=== PATIENT | female | born 1980 | race Caucasian/White ===

== ENCOUNTER 2021-01-14 15:46 | Emergency (ER) | payer OTHER, SELFPAY ==
--- NOTE | ~2021-01-14 | CT_ITS ---
EXAMINATION: CT ABDOMEN AND PELVIS WITHOUT CONTRAST CLINICAL INFORMATION: Left flank pain? Stone . COMPARISON: No pertinent prior studies are available for comparison. TECHNIQUE: Multidetector volumetric imaging was performed from the superior aspect of the liver through the pubic symphysis without contrast per renal stone protocol. Sagittal and coronal reformatted images were obtained on the technologist workstation. This CT examination was performed using dose optimization techniques as appropriate, variously including the following: *Automated exposure control *Adjustment of mA and/or kV according to patient size (this includes techniques or standardized protocols for targeted exams where dose is matched to indication/reason for exam; i.e. extremities or head) *Use of iterative reconstruction technique DLP: 535 mGy-cm. FINDINGS: LUNG BASES: The visualized lung bases are unremarkable. LIVER, GALLBLADDER, BILIARY TREE: The non-contrast liver is normal in size, shape, and attenuation. No focal hepatic lesion or biliary ductal dilatation is present. The gallbladder is unremarkable with no evidence of radiopaque gallstones, gallbladder wall thickening, or obvious pericholecystic inflammatory changes. PANCREAS: Unremarkable. SPLEEN: Unremarkable. ADRENAL GLANDS: Unremarkable. KIDNEYS AND URETERS: The kidneys are normal in size, shape, and attenuation. No hydronephrosis, hydroureter, or calculi seen. No perinephric stranding. BLADDER: Unremarkable. GASTROINTESTINAL TRACT: Scattered colonic diverticulosis. I do not appreciate any colonic wall thickening or pericolonic inflammatory changes to suggest diverticulitis. Normal-appearing appendix in the right lower quadrant. ABDOMINAL WALL: No significant hernia is appreciated. LYMPHOVASCULAR STRUCTURES: No lymphadenopathy. The aorta is unremarkable.. PELVIC VISCERA: Physiologic changes seen with likely physiologic free fluid in the dependent pelvis. OSSEUS STRUCTURES: Unremarkable. CT/CT abdomen pelvis wo con IMPRESSION: Physiologic changes in chronic appearing changes but no definitive acute process..
[2021-01-14 16:20] VITALS: BP 121/57; PULSE 68; RESP 18; O2SAT 98; BMI 27.2
[2021-01-14 16:56] LABS: Glucose Urine UA NEG (NEG); Leukocyte Esterase Urine 1+ (NEG); Nitrite Urine NEG (NEG); Specific Gravity - Urine >= 1.030 (1.005-1.025); UACC Culture Trigger YES; Urine Blood NEG (NEG); Urine Ketones NEG (NEG); Urine Protein NEG (NEG-TRACE)
[2021-01-14 17:00] LABS: Appearance Urine HAZY; Color Urine YELLOW; UPreg QC Valid YES; Urine Pregnancy NEGATIVE (NEGATIVE)
[2021-01-14 17:19] LABS: Bacteria Urine 1+ /LPF; Mucus Urine 2+ /LPF; RBC Urine 0-2 /HPF (0); Squamous Epithelial Cell Urine 2+ /LPF
[2021-01-14 17:29] LABS: Anion Gap 14 (12-20); Blood Urea Nitrogen 18 mg/dL (9-16); Calcium 9.3 mg/dL (8.4-10.2); Carbon Dioxide 25 mmol/L (22-29); Chloride 106 mmol/L (96-108); Creatinine Clr Calc Pharmacy 97.6; Estimated Glomerular Filt Rate > 60; Glucose Random 84 mg/dL (60-115); Sodium 141 mmol/L (135-145)
--- NOTE | 2021-01-14 20:03 | ED_ITS ---
HPI - Abdominal Pain General Chief Complaint: Back Pain/Injury Stated Complaint: back pain Time Seen by Provider: 01/14/21 19:25 Source: patient Mode of arrival: ambulatory Limitations: no limitations History of Present Illness HPI narrative: Patient with chronic off and on back problems complaining of left flank pain radiating to the front since afternoon today without any significant injury patient denies any urinary complaints no hematuria no nausea no vomiting MD elicited complaint: abdominal pain and flank pain Pertinent past history: none Onset (ago): hour(s) Pain Consistency: constant Location: LLQ and L flank Severity: moderate Quality: sharp Related Data Previous Rx's Medication Instructions Recorded cyclobenzaprine 10 mg PO Q8H #20 tab 01/14/21 nitrofurantoin monohyd/m-cryst 100 mg PO BID #14 cap 01/14/21 [Macrobid] tramadol 50 mg PO Q8H PRN #20 tab 01/14/21 Allergies Allergy/AdvReac Type Severity Reaction Status Date / Time No Known Allergies Allergy Unverified 07/11/20 17:18 [No Known Allergies*] Review of Systems Review of Systems Constitutional : No Weight loss, No Fever, No Chills ENT/Mouth : No sore throat, No Rhinorrhea Eyes: No Eye Pain, No Swelling Cardiovascular : No Chest Pain, no palpitations Respiratory : No Cough, No Sputum, no shortness of breath Gastrointestinal : no Nausea, No Vomiting, No Diarrhea, No abdominal Pain, no black stools Genitourinary : No Dysuria, No Urinary Frequency Musculoskeletal : No joint pain, No Myalgias, No Joint Swelling Skin : No Skin Lesions, No rash Neuro : No Weakness, No Numbness, No Dizziness, No Headache Psych : No Anxiety/Panic, No Depression Heme/Lymph: No Bruising, No Lymphadenopathy Endocrine : No Polyuria, No Polydipsia All other systems reviewed and are negative Physical Exam Vital Signs: Vital Signs: Last Vital Signs Temp 98.2 F 01/14/21 20:18 Pulse 74 01/14/21 20:18 Resp 18 01/14/21 20:18 BP 125/66 01/14/21 20:18 Pulse Ox 100 01/14/21 20:18 Body Mass Index 27.2 Appearance: Alert. Oriented X3. In moderate distress. Eyes: Pupils equal, round and reactive to light. ENT: Pharynx normal. Neck: Normal inspection. Neck supple. CVS: Normal heart rate and rhythm. Pulses normal. Respiratory: No respiratory distress. Breath sounds normal. Abdomen: Soft moderate tenderness left mid abdomen. Bowel sounds are present, no mass palpable, mild left CVA tenderness Skin: Skin warm and dry. Normal skin color. Normal skin turgor. Extremities: No lower extremity edema. Neuro: Oriented X 3. No motor deficit. No sensory deficit. MDM - Abdominal Pain MDM Narrative Medical decision making narrative: Patient with left flank and left sided abdominal pain CT scan is negative for any acute pathology patient does have a back problems off and on likely the cause of the pain her urine showed slight leukoesterase without significant bacteria or wbc's with treat her with Macrobid discharged home on pain medication muscle relaxers Medical Records Attestation: I reviewed the patient's medical records. Lab Data Attestation: I reviewed the patient's lab results. Result diagrams: 01/14/21 20:12 01/14/21 16:47 Labs: Lab Results 01/14/21 01/14/21 01/14/21 Range/Units 16:47 16:48 16:48 WBC (4.8-10.8) X10*3/uL RBC (4.20-5.50) X10*6/uL Hgb (12.0-16.0) g/dl Hct (37-47) % MCV (80-98) fL MCH (27.0-33.0) pg MCHC (31.0-35.0) g/dl RDW (11.0-16.0) % Plt Count (160-400) X10*3/uL MPV (9.4-12.3) fL Immature Gran % (Auto) (0.0-0.4) % Neut % (Auto) (45-73) % Lymph % (Auto) (20-40) % [place] % (Auto) (2-11) % Eos % (Auto) (0-4) % Baso % (Auto) (0-2) % Lymph # (Auto) (1.2-4.9) X10*3/uL [place] # (Auto) (0.1-1.2) X10*3/uL Eos # (Auto) (0.0-0.4) X10*3/uL Baso # (Auto) (0.0-0.2) X10*3/uL Abs Immat Gran (auto) (0.00-0.03) X10*3/uL Absolute Neuts (auto) (2.0-8.3) X10*3/uL Absolute Nucleated RBC (0.0-0.012) X10*3/uL Nucleated RBC % (auto) (0.0-0.2) /100WBC Sodium 141 (135-145) mmol/L Potassium 4.0 (3.3-5.1) mmol/L Chloride 106 (96-108) mmol/L Carbon Dioxide 25 (22-29) mmol/L Anion Gap 14 (12-20) BUN 18 H (9-16) mg/dL Creatinine 0.73 (0.5-1.4) mg/dL Estim Creat Clear Calc 97.6 Estimated GFR > 60 Random Glucose 84 (60-115) mg/dL Calcium 9.3 (8.4-10.2) mg/dL Urine Color YELLOW Urine Appearance HAZY Urine pH 6.0 (5.0-8.0) Ur Specific Harman >= 1.030 H (1.005-1.025) Urine Protein NEG (NEG-TRACE) MG/DL Urine Glucose (UA) NEG (NEG) MG/DL Urine Ketones NEG (NEG) MG/DL Urine Blood NEG (NEG) Urine Nitrite NEG (NEG) Ur Leukocyte Esterase 1+ H (NEG) Urine RBC 0-2 (0) /HPF Urine WBC 1-4 (0-4) /HPF Ur Squamous Epith Cells 2+ /LPF Urine Bacteria 1+ /LPF Urine Mucus 2+ /LPF Urine Test NEGATIVE (NEGATIVE) 01/14/21 Range/Units 20:12 WBC 6.6 (4.8-10.8) X10*3/uL RBC 4.21 (4.20-5.50) X10*6/uL Hgb 13.4 (12.0-16.0) g/dl Hct 39.0 (37-47) % MCV 92.6 (80-98) fL MCH 31.8 (27.0-33.0) pg MCHC 34.4 (31.0-35.0) g/dl RDW 12.3 (11.0-16.0) % Plt Count 224 (160-400) X10*3/uL MPV 9.8 (9.4-12.3) fL Immature Gran % (Auto) 0.2 (0.0-0.4) % Neut % (Auto) 53.6 (45-73) % Lymph % (Auto) 35.5 (20-40) % [place] % (Auto) 8.3 (2-11) % Eos % (Auto) 2.1 (0-4) % Baso % (Auto) 0.3 (0-2) % Lymph # (Auto) 2.3 (1.2-4.9) X10*3/uL [place] # (Auto) 0.6 (0.1-1.2) X10*3/uL Eos # (Auto) 0.1 (0.0-0.4) X10*3/uL Baso # (Auto) 0.0 (0.0-0.2) X10*3/uL Abs Immat Gran (auto) 0.01 (0.00-0.03) X10*3/uL Absolute Neuts (auto) 3.5 (2.0-8.3) X10*3/uL Absolute Nucleated RBC 0.000 (0.0-0.012) X10*3/uL Nucleated RBC % (auto) 0.0 (0.0-0.2) /100WBC Sodium (135-145) mmol/L Potassium (3.3-5.1) mmol/L Chloride (96-108) mmol/L Carbon Dioxide (22-29) mmol/L Anion Gap (12-20) BUN (9-16) mg/dL Creatinine (0.5-1.4) mg/dL Estim Creat Clear Calc Estimated GFR Random Glucose (60-115) mg/dL Calcium (8.4-10.2) mg/dL Urine Color Urine Appearance Urine pH (5.0-8.0) Ur Specific Harman (1.005-1.025) Urine Protein (NEG-TRACE) MG/DL Urine Glucose (UA) (NEG) MG/DL Urine Ketones (NEG) MG/DL Urine Blood (NEG) Urine Nitrite (NEG) Ur Leukocyte Esterase (NEG) Urine RBC (0) /HPF Urine WBC (0-4) /HPF Ur Squamous Epith Cells /LPF Urine Bacteria /LPF Urine Mucus /LPF Urine Test (NEGATIVE) Discharge Plan Discharge Clinical Impression: Strain of lumbar region, UTI (urinary tract infection) Patient Disposition: Home, Self-Care Instructions: Urinary Tract Infection in Women (ED), Acute Low Back Pain (ED) Additional Instructions: Drink plenty of fluid take antibiotics and pain medication as prescribed and follow with PCP Prescriptions: New nitrofurantoin monohyd/m-cryst [Macrobid] 100 mg capsule 100 mg PO BID Qty: 14 RF: 0 tramadol 50 mg tablet 50 mg PO Q8H PRN (Reason: pain) Qty: 20 RF: 0 cyclobenzaprine 10 mg tablet 10 mg PO Q8H Qty: 20 RF: 0 Stand Alone Forms: Work/School Release Interventions: ED Discharge Assessment Last Done: 01/14/21 22:21 Discharge Date/Time: 01/14/21 22:22 [facility] Social History Social History Alcohol intake: current Alcohol intake frequency: a few times a week Smoking Status: Former smoker Smoked in Last 30 Days: No Use of substances other than those prescribed or required for medical reasons: No Advance Directives: No Advance Directives Information Provided: No
[2021-01-14] MEDS: Ketorolac Tromethamine 30 MG/ML VIAL IVPUSH (20:13)
[2021-01-14] MEDS: ondansetron HCL 4 MG/2 ML VIAL IVPUSH (20:14)
[2021-01-14] MEDS: Morphine Sulfate 4 MG/ML CARTRIDGE IVPUSH (20:14)
[2021-01-14] MEDS: 0.9 % Sodium Chloride 1,000 ML 999 ML IVCONT (20:16)
[2021-01-14 20:18] VITALS: BP 125/66; PULSE 74; RESP 18; TEMP 36.8; O2SAT 100
[2021-01-14 20:24] LABS: MANUAL DIFF FLAG NO
[2021-01-14 20:31] LABS: Basophils Percent Auto 0.3 % (0-2); Eosinophils Absolute Auto 0.1 X10*3/uL (0.0-0.4); Eosinophils Percent Auto 2.1 % (0-4); Hemoglobin 13.4 g/dl (12.0-16.0); Imm Gran Abs Auto 0.01 X10*3/uL (0.00-0.03); Imm Gran Pct Auto 0.2 % (0.0-0.4); Lymphocytes Absolute Auto 2.3 X10*3/uL (1.2-4.9); Lymphocytes Percent Auto 35.5 % (20-40); Mean Corpuscular HGB Conc 34.4 g/dl (31.0-35.0); Mean Corpuscular Hemoglobin 31.8 pg (27.0-33.0); Mean Corpuscular Volume 92.6 fL (80-98); Mean Platelet Volume 9.8 fL (9.4-12.3); Monocytes Absolute Auto 0.6 X10*3/uL (0.1-1.2); Monocytes Percent Auto 8.3 % (2-11); Neutrophils Absolute Auto 3.5 X10*3/uL (2.0-8.3); Neutrophils Percent Auto 53.6 % (45-73); Platelet Count 224 X10*3/uL (160-400); Red Blood Count 4.21 X10*6/uL (4.20-5.50); Red Cell Distribution Width 12.3 % (11.0-16.0); White Blood Count 6.6 X10*3/uL (4.8-10.8)
[2021-01-14] MEDS: traMADoL HCL 50 MG TABLET PO (22:03)
[2021-01-14] MEDS: Nitrofurantoin Monohyd/M-Cryst 100 MG CAPSULE PO (22:03)
== END 2021-01-14 22:22 | disposition home or self-care (01) ==
PROVIDERS: Emergency Provider Internal Medicine; PCP Internal Medicine
DX: N39.0 Urinary tract infection, site not specified (principal); S39.012A Strain of muscle, fascia and tendon of lower back, initial encounter; X58.XXXA Exposure to other specified factors, initial encounter; Y93.9 Activity, unspecified; Y92.9 Unspecified place or not applicable; Y99.9 Unspecified external cause status
CPT/HCPCS: 36415; 74176; 80048; 81001; 81003; 81025; 85025; 87086; 96361; 96374; 96375; 99284; J1885; J2270; J2405

== ENCOUNTER 2021-07-31 07:27 | Outpatient (REF) | payer OTHER, SELFPAY ==
--- NOTE | ~2021-07-31 | MM_ITS ---
EXAMINATION: MM SCREENING DIGITAL BREAST TOMOSYNTHESIS, BILATERAL CLINICAL INFORMATION: Screening. Asymptomatic. The lifetime risk of breast cancer based on the Tyrer-Cuzick Model is 9%. COMPARISON: Mammography: 06/17/2020, 03/10/2019, 02/25/2018, bilateral targeted breast ultrasound 02/25/2018 TECHNIQUE: Digital breast tomosynthesis is performed in both the craniocaudal and mediolateral oblique views along with computer-aided detection (CAD). Synthesized 2D images are generated from the tomosynthesis. Additional exaggerated right CC view is provided. FINDINGS: The breasts are heterogeneously dense, which may obscure small masses (ACR BI-RADS breast composition Category c). There is fibrocystic parenchymal pattern with multiple bilateral waxing and waning round and oval smooth masses with partly obscured margins. There is no significant mass or architectural abnormality. No developing density. No abnormal calcifications. The axilla and skin contours are unremarkable. MM/MM tomosynthesis screening BI IMPRESSION: Fibrocystic parenchymal pattern. No significant changes from prior exams. ASSESSMENT: BI-RADS 2: Benign RECOMMENDATION: Routine annual mammography screening. This patient's information was entered into a reminder system with a target due date for their next mammogram.
== END 2021-07-31 07:28 | disposition home or self-care (01) ==
LOC: HO.MAMMO 07:27
PROVIDERS: PCP Internal Medicine; Visit Provider Internal Medicine
DX: Z12.31 Encounter for screening mammogram for malignant neoplasm of breast (principal)
CPT/HCPCS: 77063; 77067

== ENCOUNTER 2022-08-05 07:18 | Outpatient (REF) | payer OTHER, SELFPAY ==
--- NOTE | ~2022-08-05 | MM_ITS ---
EXAMINATION: MM SCREENING DIGITAL BREAST TOMOSYNTHESIS, BILATERAL CLINICAL INFORMATION: Screening. Asymptomatic. The lifetime risk of breast cancer based on the Tyrer-Cuzick Model is 9%. COMPARISON: Mammography: 07/31/2021, 06/17/2020, 03/10/2019, 02/25/2018; bilateral breast ultrasound 02/25/2018. TECHNIQUE: Digital breast tomosynthesis is performed in both the craniocaudal and mediolateral oblique views along with computer-aided detection (CAD). Synthesized 2D images are generated from the tomosynthesis. FINDINGS: The breasts are heterogeneously dense, which may obscure small masses (ACR BI-RADS breast composition Category c). Fibrocystic parenchymal pattern is present with multiple bilateral waxing and waning round and oval smooth masses with partly obscured margins. No architectural abnormality. No abnormal calcifications. The skin contours are smooth. The axilla are unremarkable. MM/MM tomosynthesis screening BI IMPRESSION: -Fibrocystic parenchymal pattern. -No significant changes from prior studies. ASSESSMENT: BI-RADS 2: Benign RECOMMENDATION: Routine annual mammography screening. This patient's information was entered into a reminder system with a target due date for their next mammogram.
== END 2022-08-05 07:19 | disposition home or self-care (01) ==
LOC: HO.MAMMO 07:18
PROVIDERS: Visit Provider Internal Medicine
DX: Z12.31 Encounter for screening mammogram for malignant neoplasm of breast (principal)
CPT/HCPCS: 77063; 77067

== ENCOUNTER 2023-01-27 08:05 | Outpatient (REF) | payer OTHER, SELFPAY ==
--- NOTE | ~2023-01-27 | XR_ITS ---
EXAMINATION: XR KNEE, RIGHT CLINICAL INFORMATION: Pain COMPARISON: None available. TECHNIQUE: Four views of the right knee. FINDINGS: Bones and soft tissues are normal. No fracture or joint effusion. Alignment is anatomic. Joint spaces are well maintained. No abnormal soft tissue calcification. XR/XR knee RT 4V IMPRESSION: Normal right knee.
[2023-01-27 08:21] LABS: MANUAL DIFF FLAG NO
[2023-01-27 08:42] LABS: Basophils Percent Auto 0.7 % (0-2); Eosinophils Absolute Auto 0.1 X10*3/uL (0.0-0.4); Eosinophils Percent Auto 3.1 % (0-4); Hematocrit 40.6 % (37.0-47.0); Hemoglobin 13.7 g/dl (12.0-16.0); Imm Gran Abs Auto 0.01 X10*3/uL (0.00-0.03); Imm Gran Pct Auto 0.2 % (0.0-0.4); Lymphocytes Absolute Auto 1.5 X10*3/uL (1.2-4.9); Lymphocytes Percent Auto 33.6 % (20-40); Mean Corpuscular HGB Conc 33.7 g/dl (31.0-35.0); Mean Corpuscular Hemoglobin 31.1 pg (27.0-33.0); Mean Corpuscular Volume 92.3 fL (80.0-98.0); Mean Platelet Volume 9.5 fL (9.4-12.3); Monocytes Absolute Auto 0.3 X10*3/uL (0.1-1.2); Monocytes Percent Auto 6.7 % (2-11); Neutrophils Absolute Auto 2.5 x10*3/uL (2.0-8.3); Neutrophils Percent Auto 55.7 % (45-73); Platelet Count 235 X10*3/uL (160-400); Red Cell Distribution Width 12.1 % (11.0-16.0); White Blood Count 4.5 X10*3/uL (4.8-10.8)
[2023-01-27 08:58] LABS: Anion Gap 12 (12-20); Blood Urea Nitrogen 11 mg/dL (9-16); Carbon Dioxide 26 mmol/L (22-29); Chloride 108 mmol/L (96-108); Cholesterol 142 mg/dL; Estimated Glomerular Filt Rate > 60; Glucose Random 84 mg/dL (60-115); HDL Cholesterol 58 mg/dL; LDL Cholesterol Calculated 73 mg/dl; Potassium 4.2 mmol/L (3.3-5.1); Sodium 142 mmol/L (135-145); Triglycerides 58 mg/dL
== END 2023-01-27 08:06 | disposition home or self-care (01) ==
LOC: HO.XRAY 08:05
PROVIDERS: PCP Internal Medicine; Visit Provider Internal Medicine
DX: Z00.00 Encounter for general adult medical examination without abnormal findings (principal); M25.561 Pain in right knee
CPT/HCPCS: 36415; 73564; 80048; 80061; 85025

== ENCOUNTER 2023-08-11 07:30 | Outpatient (REF) | payer OTHER, SELFPAY ==
--- NOTE | ~2023-08-11 | MM_ITS ---
EXAMINATION: MM SCREENING DIGITAL BREAST TOMOSYNTHESIS, BILATERAL CLINICAL INFORMATION: Screening. Asymptomatic. COMPARISON: Mammography: This study is compared with prior exams dating back to 2019. TECHNIQUE: Digital breast tomosynthesis is performed in both the craniocaudal and mediolateral oblique views along with computer-aided detection (CAD). Synthesized 2D images are generated from the tomosynthesis. FINDINGS: The breasts are extremely dense, which lowers the sensitivity of mammography (ACR BI-RADS breast composition Category d). There are no significant masses, abnormal calcifications, or other abnormalities. 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 Numerous benign cysts were documented in an ultrasound from 2018. MM/MM tomosynthesis screening BI IMPRESSION: No mammographic evidence of malignancy. ASSESSMENT: BI-RADS BI-RADS 2 - Benign Findings RECOMMENDATION: Routine annual mammography screening. 1 year F/U This examination should not preclude the clinical evaluation of a suspicious palpable abnormality. This patient's information was entered into a reminder system with a target due date for their next mammogram.
== END 2023-08-11 07:31 | disposition home or self-care (01) ==
LOC: HO.MAMMO 07:30
PROVIDERS: PCP Internal Medicine; Visit Provider Internal Medicine
DX: Z12.31 Encounter for screening mammogram for malignant neoplasm of breast (principal)
CPT/HCPCS: 77063; 77067

== ENCOUNTER → 2023-08-11 07:30 | Outpatient (BNV) | payer OTHER, SELFPAY | PROVIDERS: PCP Internal Medicine; Visit Provider Radiology Diagnostic Radiology | DX: Z12.31 Encounter for screening mammogram for malignant neoplasm of breast (principal) | CPT/HCPCS: 77063; 77067 ==

== ENCOUNTER 2023-10-06 08:10 | Outpatient (AMB) | payer OTHER, SELFPAY ==
[2023-10-06 09:04] VITALS: BP 118/70; PULSE 79; O2SAT 98; BMI 28.1
--- NOTE | 2023-10-06 09:04 | AM.OFFWIN_ITS ---
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 cyclobenzaprine 10 mg PO Q8H nitrofurantoin monohyd/m-cryst 100 mg (Macrobid) 100 mg PO BID tramadol 50 mg PO Q8H PRN Do you need a note to return to daycare/school/sports/work: Yes HPI HPI Comments History of Present Illness Details wednesday upon standing from seated position started w pain in transverse low back reports this has happened in the past, dating back to 2006, no obvious injury such as accident PCP advised chiro in the past, has done this with short lived relief; feels like a screwdriver across transverse low back, intermittent denies new injury treated in past w/ injections currently tx w/ heat alt with ice, stretching and nsaid w/o much relief sitting relieves pain, movement causes the pain PFSH Social History Alcohol intake: current Alcohol intake frequency: a few times a week Review of Systems Const All systems reviewed & are unremarkable except as noted in HPI and below Physical Exam Vital Signs: Last Vital Signs Pulse 79 10/06/23 09:04 BP 118/70 10/06/23 09:04 Pulse Ox 98 10/06/23 09:04 Oxygen Delivery Method Room Air 10/06/23 09:04 BMI result Body Mass Index 28.1 Const Orientation/consciousness: patient oriented x3 General: Yes no CVA tenderness Back/Spine/Pelvis Other: + lumbar lordosis, paraspinal muscle tenderness bilat lower back.SLR negative bilat. leg length = Back: no CVA tenderness Cervical Spine: normal cervical lordosis and cervical ROM normal Neuro General: patient oriented x3, gait normal, tone normal, moves all extremities, no focal motor deficits and deep tendon reflexes 2+ bilaterally Assessment & Plan Assessment & Plan (1) Lordosis of lumbar region: Code(s): M40.56 - Lordosis, unspecified, lumbar region Plan: meds as above PT edu provided about cause for pain (2) Lumbar paraspinal muscle spasm: Code(s): M62.830 - Muscle spasm of back Plan: see above Orders: Orders PT Evaluation and Treatment Today M40.56 - Lordosis, unspecified, lumbar region, M62.830 - Muscle spasm of back Medications: New meloxicam 7.5 mg PO DAILY PRN 14 tabs 0RF pain 14 days tizanidine (Zanaflex) 4 mg PO BEDTIME PRN 7 tabs 0RF muscle spasticity 7 days Coding Level of Care Code Est Pt Level 4 (55920) Diagnoses Lordosis of lumbar region M40.56 Lumbar paraspinal muscle spasm M62.830
== END 2023-10-06 10:16 | disposition home or self-care (01) ==
PROVIDERS: PCP Internal Medicine; Visit Provider Nurse Practitioner Family
DX: M40.56 Lordosis, unspecified, lumbar region (principal); M62.830 Muscle spasm of back
CPT/HCPCS: 99214

== ENCOUNTER 2023-10-15 12:22 | Outpatient (REF) | payer OTHER, SELFPAY ==
[2023-10-15 13:48] LABS: Appearance Urine Cloudy; Color Urine Yellow; Glucose Urine UA Negative (Negative); Leukocyte Esterase Urine Moderate (2+) (Negative); Nitrite Urine Negative (Negative); PH 5.5 (5.0-9.0); Specific Gravity - Urine 1.025 (1.005-1.025); UMIC TRIGGER UA YES; Urine Blood Trace (Negative); Urine Ketones Negative (Negative); Urine Protein Negative (Neg-Trace)
[2023-10-15 13:55] LABS: Bacteria Urine 2+ (None Seen); Hyaline Casts Urine 0-2 /LPF (0-2); WBC Urine 21-50 /HPF (0-5)
== END 2023-10-15 12:23 | disposition home or self-care (01) ==
LOC: HO.XRAY 12:22
PROVIDERS: PCP Internal Medicine; Visit Provider Internal Medicine
DX: M54.50 Low back pain, unspecified (principal); R82.90 Unspecified abnormal findings in urine
CPT/HCPCS: 72100; 81001; 81003; 87086

== ENCOUNTER 2023-12-31 16:43 | Outpatient (REF) | payer OTHER, SELFPAY ==
--- NOTE | ~2023-12-31 | XR_ITS ---
EXAMINATION: CERVICAL SPINE 3 VIEWS CLINICAL INFORMATION: Neck pain. COMPARISON: None. TECHNIQUE: Frontal, lateral and odontoid views are obtained. FINDINGS: Vertebral body heights and alignment are normal. The disc spaces are well-maintained. No acute fracture or spondylolisthesis is seen. The dens and C7-T1 interface are normal. The posterior elements are intact. There is no prevertebral soft tissue swelling. XR/XR cervical spine 3V IMPRESSION: Negative examination.
== END 2023-12-31 16:44 | disposition home or self-care (01) ==
LOC: HO.XRAY 16:43
PROVIDERS: PCP Internal Medicine; Visit Provider Internal Medicine
DX: M54.2 Cervicalgia (principal)
CPT/HCPCS: 72040

== ENCOUNTER 2024-04-19 08:52 | Outpatient (REF) | payer OTHER, SELFPAY ==
[2024-04-19 11:31] LABS: Appearance Urine Hazy; Color Urine Orange; PH 5.5 (5.0-9.0); Specific Gravity - Urine >= 1.030 (1.005-1.025); UMIC TRIGGER UACC YES
[2024-04-19 11:44] LABS: Bacteria Urine 4+ (None Seen); Hyaline Casts Urine 0-2 /LPF (0-2); UACC Culture Trigger YES; WBC Urine 21-50 /HPF (0-5)
== END 2024-04-19 08:53 | disposition home or self-care (01) ==
LOC: HO.HMGCLDS 08:52
PROVIDERS: PCP Internal Medicine; Visit Provider Internal Medicine
DX: R30.0 Dysuria (principal)
CPT/HCPCS: 81001; 87086

== ENCOUNTER 2024-04-19 14:38 | Outpatient (REF) | payer OTHER, SELFPAY ==
--- NOTE | ~2024-04-19 | US_ITS ---
EXAMINATION: US RETROPERITONEAL COMPLETE (RENAL) CLINICAL INFORMATION: Dysuria and left flank pain. COMPARISON: 01/19/2021 TECHNIQUE: Real-time imaging of the kidneys and bladder. FINDINGS: RIGHT KIDNEY: 10.3 x 5.2 x 4.6 cm (SAG x AP x TRV). The kidney is normal in size, contour, and echogenicity. Renal cortical thickness is normal. No renal calculi seen but there is echogenic lower pole 0.7 x 0.9 x 0.8 cm lesion consistent with the appearance of angiomyolipoma . No evidence of hydronephrosis. LEFT KIDNEY: 11.2 x 5.4 x 5.0 cm (SAG x AP x TRV). The kidney is normal in size, contour, and echogenicity. Renal cortical thickness is normal. No calculi or focal parenchymal lesions. There is simple 0.7 x 0.7 x 0.7 cm cyst in interpolar collecting system. No hydronephrosis. BLADDER: Well distended and normal. Bilateral ureteral jets are demonstrated. Prevoid bladder volume is 391 mL. Postvoid bladder volume is 30 mL. Incidental findings: There is fluid in the endometrial cavity US/US retroperitoneal comp IMPRESSION: 1. Angiomyolipoma in the right 3. Small amount of fluid in endometrial, 3. Simple cyst left kidney.
== END 2024-04-19 14:39 | disposition home or self-care (01) ==
LOC: HO.US 14:38
PROVIDERS: PCP Internal Medicine; Visit Provider Internal Medicine
DX: R30.0 Dysuria (principal); R10.9 Unspecified abdominal pain
CPT/HCPCS: 76770

== ENCOUNTER 2024-04-24 10:51 | Outpatient (AMB) | payer SELFPAY ==
--- NOTE | 2024-04-24 11:06 | MHC.OFFVIS ---
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 Pineda. She presents to the office today as a new patient for recurrent urinary tract infections. In discussion with the patient today she reports having followed up with her PCP multiple times for UTI like symptoms and being treated for urinary tract infection. She reports currently being on antibiotic therapy for a urinary tract infection. She reports originally being prescribed Macrobid however after 2 days had not been feeling any better and felt symptoms were persistent at which time her Macrobid was switched to ciprofloxacin. She reports she is currently on antibiotic therapy ciprofloxacin 500 mg b.i.d. that she started on Wednesday with her PCP. In review of patient's chart it appears a retroperitoneal ultrasound was ordered and completed. These results were reviewed with the patient today. Bilateral kidneys with no lesions or calculi noted. Right-sided 0.9cm lesion consistent with an appearance of angiolipoma. Left kidney with simple 0.7 interpolar cyst. The bladder is well distended and normal. Bilateral jets are demonstrated. Pre void bladder volume is approximately 390 mL. Postvoid bladder volume is approximately 30 mL. She reports typically her UTI like symptoms are flank pain. She currently denies urinary urgency, urinary frequency, incontinence, nocturia, hematuria, dysuria, foul smelling urine, changes to urinary stream, fever, and or chills. She is happy with her current voiding parameters. She denies any issues with her bowels. She reports to be premenopausal as she has not had her menses since October of this year. In review of patient's chart it appears urine cultures 01/12, 10/16, and 04/17 noted mixed bacteria. Discussed at length potential causes of urinary tract infections/recurrent urinary tract infections. She does endorse to not drinking much fluid intake such as water daily. She does report noting bilateral flank pain. In office urinalysis results reviewed with the patient today 2+ leukocytes and positive nitrates noted. PVR 0 mL. She otherwise offers no other issues or concerns at this time. [facility] Social History Alcohol intake: current Alcohol intake frequency: a few times a week Review of Systems Const All systems reviewed & are unremarkable except as noted in HPI and below Physical Exam Const General: cooperative, healthy appearing, comfortable, no acute distress, well developed, alert and awake Orientation/consciousness: patient oriented x3 Limitations: no limitations HEENT Head: Yes normal to inspection, Yes normocephalic and Yes atraumatic Ears: hearing grossly normal bilaterally Eyes General: appearance normal, both eyes and all related structures Neck Neck: Yes normal visual inspection and Yes trachea midline Chest Chest palpation & inspection: normal inspection of the chest Resp Effort & Inspection: normal respiratory effort and able to speak in complete sentences Cardio Rate: regular rate GI Inspection: Yes normal to inspection General: Yes no CVA tenderness Back/Spine/Pelvis Back: no CVA tenderness Skin General skin exam: no rashes or lesions noted Neuro General: patient oriented x3 Extrem General: Yes normal to inspection Psych Appearance: grossly normal and well kempt Mental Status: mental status grossly normal Speech and movement: Normal speech and movement present and Clear speech present Affect: normal affect Attitude: cooperative Thought process: Normal thought process present Thought content: Normal thought content present Insight: Fair insight present (Psych) Judgement: Fair judgement present (Psych) Results AMB Urinalysis, Automated UA Leukoctes 125 Reginald/uL Last Edit by Brianna Banuelos on 04/24/24 11:30 UA Nitrite Positive Last Edit by Brianna Banuelos on 04/24/24 11:30 UA Urobilinogen 0.2 mg/dL Last Edit by Brianna Banuelos on 04/24/24 11:30 UA Protein 0 mg/dL Last Edit by Brianna Banuelos on 04/24/24 11:30 UA pH 6.0 Last Edit by Brianna Banuelos on 04/24/24 11:30 UA Blood 10 Clarke/uL Last Edit by Brianna Banuelos on 04/24/24 11:30 UA Specific Lovell 1.020 Last Edit by Brianna Banuelos on 04/24/24 11:30 UA Ketone Negative Last Edit by Brianna Banuelos on 04/24/24 11:30 UA Bilirubin 0 mg/dL Last Edit by Brianna Banuelos on 04/24/24 11:30 UA Glucose 0 mg/dL Last Edit by Brianna Banuelos on 04/24/24 11:30 Results Reviewed Results Reviewed: Laboratory Last Values Urine pH (Auto) 6.0 04/24/24 11:28 Specific Lovell (Auto) 1.020 04/24/24 11:28 Urine Protein (Auto) 0 mg/dL 04/24/24 11:28 Glucose (UA)(Auto) 0 mg/dL 04/24/24 11:28 Urine Ketones (Auto) Negative 04/24/24 11:28 Urine Blood (Auto) 10 Clarke/uL 04/24/24 11:28 Urine Nitrite (Auto) Positive 04/24/24 11:28 Urine Bilirubin (Auto) 0 mg/dL 04/24/24 11:28 Urine Urobilinogen (Auto) 0.2 mg/dL 04/24/24 11:28 Leukocyte Esterase (Auto) 125 Reginald/uL 04/24/24 11:28 Date of Service: 04/19/24 EXAMINATION: US RETROPERITONEAL COMPLETE (RENAL) FINDINGS: RIGHT KIDNEY: 10.3 x 5.2 x 4.6 cm (SAG x AP x TRV). The kidney is normal in size, contour, and echogenicity. Renal cortical thickness is normal. No renal calculi seen but there is echogenic lower pole 0.7 x 0.9 x 0.8 cm lesion consistent with the appearance of angiomyolipoma . No evidence of hydronephrosis. LEFT KIDNEY: 11.2 x 5.4 x 5.0 cm (SAG x AP x TRV). The kidney is normal in size, contour, and echogenicity. Renal cortical thickness is normal. No calculi or focal parenchymal lesions. There is simple 0.7 x 0.7 x 0.7 cm cyst in interpolar collecting system. No hydronephrosis. BLADDER: Well distended and normal. Bilateral ureteral jets are demonstrated. Prevoid bladder volume is 391 mL. Postvoid bladder volume is 30 mL. Incidental findings: There is fluid in the endometrial cavity IMPRESSION: 1. Angiomyolipoma in the right 3. Small amount of fluid in endometrial, 3. Simple cyst left kidney. Assessment & Plan Assessment & Plan (1) Recurrent UTI: Code(s): N39.0 - Urinary tract infection, site not specified Category: Medical (2) Complicated urinary tract infection: Code(s): N39.0 - Urinary tract infection, site not specified Category: Medical (3) Flank pain: Code(s): R10.9 - Unspecified abdominal pain Category: Medical Plan In office urinalysis results reviewed with the patient today; as noted above. PVR 0 mLs. Recent retroperitoneal ultrasound results reviewed with the patient today; as noted above. Discussed at length potential causes of recurrent urinary tract infections. Discussed UTI prevention with D mannose supplement, vitamin-C, increasing fluid intake, behavioral therapy with timed voiding, perineal hygiene and postcoital voiding, and management of constipation with stool softeners and increased fiber intake. Discussed and stressed the importance of completing antibiotic therapy as prescribed. Follow-up with nursing after completion of antibiotic therapy for urinalysis for further assessment evaluation. Discussed possible near future microgen. Discussed possible near future in office cystoscopy if symptoms persist. Follow-up with provider in 3 months with PVR. Orders: Orders AMB Urinalysis Automated Today Z13.9 - Encounter for screening, unspecified Patient Instructions: The patient had an opportunity to ask questions regarding the treatment plan. All questions were answered. Physical exam, labs, and imaging were discussed and reviewed in detail. As well as risks, benefits, and discussion of treatment choices. No major barriers to understanding were identified. The patient expressed understanding and agreement with the above treatment plan. The patient was made aware they should contact our office by phone for worsening of their current condition, the appearance of new symptoms, or with any questions or concerns. Compliance is encouraged with any medications and follow up testing that is ordered. It is a privilege to be allowed the opportunity to participate in? your urological care.? Again, if you have any questions or concerns If you have any questions or concerns please do not hesitate to contact me. The office is [phone]. This note is constructed using voice recognition software. While every effort has been made to ensure accuracy patient access representative errors may have been included. Yours sincerely, KARLOS Vines Coding Level of Care Code New Pt Level 3 (09084) Diagnoses Recurrent UTI N39.0 Complicated urinary tract infection N39.0 Flank pain R10.9
== END 2024-04-24 11:34 | disposition home or self-care (01) ==
PROVIDERS: PCP Internal Medicine; Visit Provider Nurse Practitioner Family
DX: N39.0 Urinary tract infection, site not specified (principal); R10.9 Unspecified abdominal pain; Z13.9 Encounter for screening, unspecified
CPT/HCPCS: 99203

== ENCOUNTER → 2024-04-24 10:51 | Outpatient (BNVA) | payer SELFPAY | PROVIDERS: PCP Internal Medicine; Visit Provider Nurse Practitioner Family | DX: N39.0 Urinary tract infection, site not specified (principal); R10.9 Unspecified abdominal pain | CPT/HCPCS: 81003 ==

== ENCOUNTER 2024-05-03 08:26 | Outpatient (AMB) | payer OTHER, SELFPAY ==
--- NOTE | 2024-05-03 08:51 | AM.OFFVISNUR ---
Intake Visit Reasons: 1w/UA Allergies No Known Allergies [No Known Allergies*] Allergy (Verified 04/24/24 11:45) Nursing Note Patient presents to office for urinalysis due to being on antibiotics during last office visit with Livia EVERETT. Patient given castile soap wipes and urine cup. Patient reporting not feeling any better since finishing antibiotics. Urinalysis shows microscopic hematuria and dehydration. Reviewed all information with Livia- would like patient to complete microgen testing to get more information as cultures not indicating infection and low bacteria loads. Patient agreeable, microgen explained including possible charge and patient was agreeable, formed signed. Will have microgen picked up once patient calls with updated insurance information. Patient agreeable with plan at this time. Assessment & Plan Assessment & Plan Orders: Orders AMB Urinalysis Automated Today N39.0 - Urinary tract infection, site not specified, R10.9 - Unspecified abdominal pain
== END 2024-05-03 09:37 | disposition home or self-care (01) ==
PROVIDERS: PCP Internal Medicine; Visit Provider Nurse Practitioner Family
DX: R10.9 Unspecified abdominal pain (principal); N39.0 Urinary tract infection, site not specified

== ENCOUNTER → 2024-05-03 08:26 | Outpatient (BNVA) | payer BC, SELFPAY | PROVIDERS: PCP Internal Medicine; Visit Provider Nurse Practitioner Family | DX: N39.0 Urinary tract infection, site not specified (principal); R10.9 Unspecified abdominal pain | CPT/HCPCS: 81003 ==

== ENCOUNTER 2024-08-16 07:25 | Outpatient (REF) | payer BC, SELFPAY ==
--- NOTE | ~2024-08-16 | MM_ITS ---
EXAMINATION: MM SCREENING DIGITAL BREAST TOMOSYNTHESIS, BILATERAL CLINICAL INFORMATION: Screening. Asymptomatic. COMPARISON: Mammography: Comparison is made with available priors TECHNIQUE: Digital breast mammography with tomosynthesis is performed in both the craniocaudal and mediolateral oblique views along with computer-aided detection (CAD). FINDINGS: The breasts are extremely dense, which lowers the sensitivity of mammography (ACR BI-RADS breast composition Category d). Bilateral circumscribed oval masses consistent with benign fibrocystic changes and cysts. Simple cysts were seen on prior ultrasounds. There are no significant masses, abnormal calcifications, or other abnormalities. MM/MM tomosynthesis screening BI IMPRESSION: No mammographic evidence of malignancy. ASSESSMENT: BI-RADS BI-RADS 2 - Benign Findings RECOMMENDATION: Routine annual mammography screening. 1 year F/U This examination should not preclude the clinical evaluation of a suspicious palpable abnormality. This patient's information was entered into a reminder system with a target due date for their next mammogram. Electronically signed by: Berenice Avian DO 08/28/2024 03:49 PM RODRIGUEZ
== END 2024-08-16 07:26 | disposition home or self-care (01) ==
LOC: HO.MAMMO 07:25
PROVIDERS: PCP Internal Medicine; Visit Provider Internal Medicine
DX: Z12.31 Encounter for screening mammogram for malignant neoplasm of breast (principal)
CPT/HCPCS: 77063; 77067

== ENCOUNTER → 2024-08-16 07:30 | Outpatient (BNV) | payer BC, SELFPAY | PROVIDERS: PCP Internal Medicine; Visit Provider Internal Medicine | DX: Z12.31 Encounter for screening mammogram for malignant neoplasm of breast (principal) | CPT/HCPCS: 77063; 77067 ==

== ENCOUNTER 2024-08-28 08:37 | Outpatient (REF) | payer BC, SELFPAY ==
[2024-08-28 16:41] LABS: Urine Cytology See Pathology rpt
== END 2024-08-28 08:38 | disposition home or self-care (01) ==
LOC: HO.LNP 08:37
PROVIDERS: PCP Internal Medicine; Visit Provider Nurse Practitioner Family
DX: R31.29 Other microscopic hematuria (principal)
CPT/HCPCS: 51798; 81003; 88112

== ENCOUNTER 2024-08-28 08:37 | Outpatient (AMB) | payer BC, SELFPAY ==
--- NOTE | 2024-08-28 08:40 | A.OFFVIS_ITS ---
Intake Visit Reasons: UTI keeps coming back?? Intake Note: Patient presents today for follow up on: recurrent uti and dysuria Urology Medications: none Allergies to Antibiotic: none Blood Thinner: none PVR:0ml's Supervisor Dehydrogenation Required: No Accompanied by: Self / Same As Patient Allergies No Known Allergies [No Known Allergies*] Allergy (Verified 08/28/24 09:13) Medication List - Last Reconciled 08/28/24 by KARLOS Vines No Known Home Meds HPI Comments Details: Gretta is a pleasant 43-year-old female patient of Dr. Pineda. She presents to the office today for follow-up. Of note, patient was seen approximately 4 months ago as a new patient for recurrent urinary tract infec tions however previous urine cultures have noted mixed urinary bacteria. She reports having called the office for a sooner appointment as she continues to experience the left upper quadrant pain and at times left-sided flank pain. He previous workup has included a retroperitoneal ultrasound 04/17 noting bilateral kidneys with no lesions or calculi noted. Right-sided 0.9cm lesion consistent with an appearance of angiolipoma. Left kidney with simple 0.7 interpolar cyst. The bladder is well distended and normal. Bilateral jets are demonstrated. Pre void bladder volume is approximately 390 mL. Postvoid bladder volume is approximately 30 mL. She reports typically her UTI like symptoms are flank pain. She currently denies urinary urgency, urinary frequency, incontinence, nocturia, hematuria, dysuria, foul smelling urine, changes to urinary stream, fever, and or chills. She is happy with her current voiding parameters. She denies any issues with her bowels. She reports to be premenopausal as she has not had her menses since October of this year. In review of patient's chart it appears urine cultures 01/12, 10/16, and 04/17 noted mixed bacteria. Discussed at length potential causes of pain she is experiencing. She does endorse to not drinking much fluid intake such as water daily. In office urinalysis results reviewed with the patient today trace leukocytes negative nitrates pH 5.5 and 1+ microscopic hematuria. When asked she denies any previous history of workplace chemical exposure and or nicotine dependence. We discussed at length potential causes of microscopic hematuria as well as further workup to include in office cystoscopy. PVR 0 mL. No CVA tenderness noted bilaterally on exam today. She otherwise offers no other issues or concerns at this time. [facility] Social History Alcohol intake: current Alcohol intake frequency: a few times a week Review of Systems Const All systems reviewed & are unremarkable except as noted in HPI and below Physical Exam Const General: cooperative, healthy appearing, comfortable, no acute distress, well developed, alert and awake Orientation/consciousness: patient oriented x3 Limitations: no limitations HEENT Head: Yes normal to inspection, Yes normocephalic and Yes atraumatic Ears: hearing grossly normal bilaterally Eyes General: appearance normal, both eyes and all related structures Neck Neck: Yes normal visual inspection and Yes trachea midline Chest Chest palpation & inspection: normal inspection of the chest Resp Effort & Inspection: normal respiratory effort and able to speak in complete sentences Cardio Rate: regular rate GI Inspection: Yes normal to inspection General: Yes no CVA tenderness Back/Spine/Pelvis Back: no CVA tenderness Skin General skin exam: no rashes or lesions noted Neuro General: patient oriented x3 Extrem General: Yes normal to inspection Psych Appearance: grossly normal and well kempt Mental Status: mental status grossly normal Speech and movement: Normal speech and movement present and Clear speech present Affect: normal affect Attitude: cooperative Thought process: Normal thought process present Thought content: Normal thought content present Insight: Fair insight present (Psych) Judgement: Fair judgement present (Psych) Office Procedures Post Void Residual Post Residual Void Post Void Residual (PVR): 0 [id number] Void Residual by ultrasound Results AMB Urinalysis, Automated UA Leukoctes 15 Reginald/uL Last Edit by Brianna Banuelos on 08/28/24 09:03 UA Nitrite Negative Last Edit by Brianna Banuelos on 08/28/24 09:03 UA Urobilinogen 0.2 mg/dL Last Edit by Brianna Banuelos on 08/28/24 09:03 UA Protein 15 mg/dL Last Edit by Brianna Banuelos on 08/28/24 09:03 UA pH 5.5 Last Edit by Brianna Brennandevang on 08/28/24 09:03 UA Blood 25 Clarke/uL Last Edit by Lionelalanis Anudevang on 08/28/24 09:03 UA Specific Morton 1.030 Last Edit by Lionelalanis Anudevang on 08/28/24 09:03 UA Ketone Negative Last Edit by Yoshilily Anudevang on 08/28/24 09:03 UA Bilirubin 0 mg/dL Last Edit by Lionelalanis Anudevang on 08/28/24 09:03 UA Glucose 0 mg/dL Last Edit by Yoshilily Anudevang on 08/28/24 09:03 Results Reviewed Results Reviewed: Laboratory Last Values Urine pH (Auto) 5.5 08/28/24 08:46 Specific Morton (Auto) 1.030 08/28/24 08:46 Urine Protein (Auto) 15 mg/dL 08/28/24 08:46 Glucose (UA)(Auto) 0 mg/dL 08/28/24 08:46 Urine Ketones (Auto) Negative 08/28/24 08:46 Urine Blood (Auto) 25 Clarke/uL 08/28/24 08:46 Urine Nitrite (Auto) Negative 08/28/24 08:46 Urine Bilirubin (Auto) 0 mg/dL 08/28/24 08:46 Urine Urobilinogen (Auto) 0.2 mg/dL 08/28/24 08:46 Leukocyte Esterase (Auto) 15 Reginald/uL 08/28/24 08:46 Assessment & Plan Assessment & Plan (1) Flank pain: Code(s): R10.9 - Unspecified abdominal pain Category: Medical (2) Microscopic hematuria: Code(s): R31.29 - Other microscopic hematuria Category: Medical Plan In office urinalysis results reviewed with the patient today; as noted above; will send for urine cytology. PVR 0 mL Discussed at length potential causes of microscopic hematuria as well as pain patient is experiencing. BUN and creatinine ordered for imaging Will obtain CT urogram for further assessment evaluation. Discussed microscopic hematuria workup to include in office cystoscopy. She denies any bothersome urinary issues. She reports be happy with current voiding parameters. Discussed, educated, and stressed the importance of adequate hydration in relation to overall health and well-being. Discussed seeking medical treatment if symptoms worsen. Follow-up in 4-6 weeks with imaging to be completed prior; or sooner with any issues, concerns, and or questions. Orders: Orders CT urogram Today R31.0 - Gross hematuria AMB Urinalysis Automated Today Z13.9 - Encounter for screening, unspecified AMB Post Void Residual by ultrasound Today N39.0 - Urinary tract infection, site not specified Blood Urea Nitrogen Today R10.9 - Unspecified abdominal pain Creatinine Today R10.9 - Unspecified abdominal pain Patient Instructions: The patient had an opportunity to ask questions regarding the treatment plan. All questions were answered. Physical exam, labs, and imaging were discussed and reviewed in detail. As well as risks, benefits, and discussion of treatment choices. No major barriers to understanding were identified. The patient expressed understanding and agreement with the above treatment plan. The patient was made aware they should contact our office by phone for worsening of their current condition, the appearance of new symptoms, or with any questions or concerns. Compliance is encouraged with any medications and follow up testing that is ordered. It is a privilege to be allowed the opportunity to participate in? your urological care.? Again, if you have any questions or concerns If you have any questions or concerns please do not hesitate to contact me. The office is [phone]. This note is constructed using voice recognition software. While every effort has been made to ensure accuracy ball holder errors may have been included. Yours sincerely, KARLOS Vines Coding Level of Care Code Est Pt Level 3 (52852) Diagnoses Flank pain R10.9 Microscopic hematuria R31.29 CPT Codes Post Residual Void - PVR CPT Code: 47024-Puzy Void Residual by ultrasound ([id number])
== END 2024-08-28 09:11 | disposition home or self-care (01) ==
LOC: HO.HUSH 08:37
PROVIDERS: PCP Internal Medicine; Visit Provider Nurse Practitioner Family
DX: R10.9 Unspecified abdominal pain (principal); R31.29 Other microscopic hematuria; Z13.9 Encounter for screening, unspecified
CPT/HCPCS: 99213

== ENCOUNTER 2024-09-04 13:44 | Emergency (ER) | payer BC, SELFPAY ==
--- NOTE | ~2024-09-04 | CT_ITS ---
EXAMINATION: CT ABDOMEN AND PELVIS WITHOUT CONTRAST CLINICAL INFORMATION: flank pain COMPARISON: CT abdomen/pelvis 01/14/2021 TECHNIQUE: Multidetector volumetric imaging was performed from the superior aspect of the liver through the pubic symphysis. Sagittal and coronal reformatted images were obtained on the technologist's workstation. This CT examination was performed using dose optimization techniques as appropriate, variously including the following: *Automated exposure control *Adjustment of mA and/or kV according to patient size (this includes techniques or standardized protocols for targeted exams where dose is matched to indication/reason for exam; i.e. extremities or head) *Use of iterative reconstruction technique DLP: 533 mGy-cm FINDINGS: LUNG BASES: The visualized lung bases are unremarkable. LIVER, GALLBLADDER, AND BILIARY TREE: The liver is normal in size, shape, and attenuation. No focal hepatic lesion or biliary ductal dilatation is present. The gallbladder is unremarkable with no evidence of radiopaque gallstones, gallbladder wall thickening, or obvious pericholecystic inflammatory changes. PANCREAS: Unremarkable. SPLEEN: Unremarkable. ADRENAL GLANDS: Unremarkable. KIDNEYS AND URETERS: The kidneys are normal in size, shape, and attenuation. No hydronephrosis, hydroureter, or calculi seen. No perinephric stranding. BLADDER: Unremarkable. GASTROINTESTINAL TRACT: The small and large bowel are unremarkable. The appendix is unremarkable. ABDOMINAL WALL: No significant hernia is appreciated. LYMPH NODES: Normal. VASCULAR: Unremarkable. PELVIC VISCERA: Normal CT appearance of uterus. No adnexal masses. OSSEOUS STRUCTURES: Unremarkable. CT/CT abdomen pelvis wo IV con IMPRESSION: No acute abnormality within the abdomen or pelvis. Specifically, no evidence of nephrolithiasis or obstructive uropathy. Fleischner guidelines were followed. Electronically signed by: Ana Chandler DO 09/04/2024 04:[address] [facility]
[2024-09-04 14:05] VITALS: BP 138/73; PULSE 86; RESP 18; TEMP 36.1; O2SAT 98; BMI 28.5
--- NOTE | 2024-09-04 14:05 | ED_ITS ---
HPI - General Adult General Chief complaint: Abdominal Pain Stated complaint: kidney stone ? Time Seen by Provider: 09/04/24 17:39 Source: patient Mode of arrival: ambulatory Limitations: no limitations History of Present Illness ED Provider: Dr. Ivy Aldrich HPI narrative: Patient comes to the emergency room complaining of left lower back pain radiating towards the left lower quadrant. Patient states that she has had this pain for couple of days. Patient states that intermittently she has had similar pain for the last few years. No history of kidney stones Related Data Previous Rx's ?Medication ?Instructions ?Recorded cyclobenzaprine 10 mg tablet 10 mg PO TID PRN muscle spasm #10 09/04/24 tabs tramadol 50 mg tablet 50 mg PO BID PRN pain #6 tabs 09/04/24 Allergies Allergy/AdvReac Type Severity Reaction Status Date / Time No Known Allergies Allergy Verified 09/04/24 14:06 [No Known Allergies*] Review of Systems 2 Review of Systems: Constitutional : No Weight loss, No Fever, No Chills, No Night Sweats, No Fatigue, No Malaise ENT/Mouth : No Hearing loss, No Ear Pain, No Nasal Congestion, No Sinus Pain, No Hoarseness, No sore throat, No Rhinorrhea, No Swallowing Difficulty Eyes: No Eye Pain, No Swelling, No Redness, No Foreign Body, No Discharge, No Vision Changes Cardiovascular : No Chest Pain, No SOB, No Dyspnea on Exertion, No Orthopnea, No Edema, No Palpitations Respiratory : No Cough, No Sputum, No Wheezing, No Smoke Exposure, No Dyspnea Gastrointestinal : No Nausea, No Vomiting, No Diarrhea, No Constipation, No abdominal Pain, No Hematochezia, No Melena Genitourinary : no irregular bleeding, No Dysuria, No Urinary Frequency, No Hematuria, No Urinary Incontinence, No Urgency, No Flank Pain, No Urinary Flow Changes, No Hesitancy Musculoskeletal : Complaining of left lower back pain,, No Myalgias, No Joint Swelling Skin : No Skin Lesions, No rash Neuro : No Weakness, No Numbness, No Paresthesias, No Loss of Consciousness, No Dizziness, No Headache Psych : No Anxiety/Panic, No Depression, No SI/HI/AH/VH, No Social Issues, Heme/Lymph: No Bruising, No Bleeding,No Lymphadenopathy Endocrine : No Polyuria, No Polydipsia, No Temperature Intolerance PMFSH Social History Social History Alcohol intake: current Alcohol intake frequency: a few times a week Smoked in Last 30 Days: No Use of substances other than those prescribed or required for medical reasons: No Advance Directives: No Advance Directives Information Provided: No Do you have a plan to hurt others: No Plan Patient : No Physical Exam ED Vital Signs: Vital Signs - 24 hr 09/04/24 14:05 09/04/24 18:34 09/04/24 18:43 Temperature 96.9 F 97.2 F Pulse Rate 86 75 Respiratory Rate 18 17 16 Blood Pressure 138/73 122/72 Pulse Oximetry 98 97 Oxygen Delivery Method Room Air Room Air BMI result Body Mass Index 28.5 Const Other: Appearance: Alert. Oriented X3. No acute distress. Eyes: Pupils equal, round and reactive to light. ENT: Pharynx normal. Neck: Normal inspection. Neck supple. No lymph nodes noted. No crepitus CVS: Normal heart rate and rhythm. Pulses normal. Normal S1 and S2 Respiratory: No respiratory distress. Breath sounds normal. No Wheezing. No rales Abdomen: Soft and nontender. No rigidity. No distention. Back: Pain to palpation over the bilateral lumbar area, no lumbar spine tenderness. No flank pain. Skin: Skin warm and dry. Normal skin color. Normal skin turgor. Extremities: No lower extremity edema. No Lacerations. No Rash Neuro: Oriented X 3. No motor deficit. No sensory deficit. Moving all extremities. No slurred speech. CN 2 through 12 grossly intact Psych: calm, cooperative, normal affect Course Course Course Narrative: RME performed by Judy Edwards PA-C. Patient is a 43 year old assigned female at presenting to the emergency department with low back and flank pain. Detailed physical exam and review of systems are deferred to the director of food and nutrition. Labs. imaging, and swabs ordered. Patient placed back in the waiting room pending room availability and results. Medications Administered Discontinued Medications Generic Name Dose Route Start Last Admin Trade Name Freq PRN Reason Stop Dose Admin Acetaminophen 975 mg 09/04/24 16:27 09/04/24 16:30 Acetaminophen 325 Mg Tablet PO 09/04/24 16:28 975 mg ONCE ONE Administration Cyclobenzaprine HCl 10 mg 09/04/24 18:10 09/04/24 18:41 Cyclobenzaprine Hcl 10 Mg Tablet PO 09/04/24 18:11 10 mg ONCE ONE Administration Morphine Sulfate 2 mg 09/04/24 18:10 09/04/24 18:43 Morphine Sulfate 4 Mg/Ml Cartridge IM 09/04/24 18:11 2 mg ONCE ONE Administration Protocol Medical Decision Making Medical Decision Making [facility] Narrative: My interpretation of labs: No significant abnormality in hematology chemistry, no UTI, serology negative My interpretation of CT scan, no obvious evidence of ureterolithiasis I discussed with the patient that she likely has muscle spasms. Patient has been seen multiple times for the same condition. CT scan was negative for kidney stones. Urine negative for UTI. Patient states that she has been seen also by chiropractors, has had physical therapy, she still gets intermittent back pain I discussed with the patient that eventually she may need imaging which can be determined by her PCP. Differential Diagnosis Differential Diagnoses: The differential diagnosis associated with the presentation includes (As above) Lab Data [facility] Lab Attestation statement: I reviewed the patient's lab results. 09/04/24 14:13 09/04/24 14:13 Labs: Lab Results 09/04/24 09/04/24 Range/Units 14:13 17:53 WBC 5.3 (4.8-10.8) X10*3/uL RBC 4.47 (4.20-5.50) X10*6/uL Hgb 14.2 (12.0-16.0) g/dl Hct 39.7 (37.0-47.0) % MCV 88.8 (80.0-98.0) fL MCH 31.8 (27.0-33.0) pg MCHC 35.8 H (31.0-35.0) g/dl RDW 11.9 (11.0-16.0) % Plt Count 220 (160-400) X10*3/uL MPV 9.3 L (9.4-12.3) fL Immature Gran % (Auto) 0.2 (0.0-0.4) % Neut % (Auto) 52.0 (45-73) % Lymph % (Auto) 36.3 (20-40) % [place] % (Auto) 7.9 (2-11) % Eos % (Auto) 3.0 (0-4) % Baso % (Auto) 0.6 (0-2) % Lymph # (Auto) 1.9 (1.2-4.9) X10*3/uL [place] # (Auto) 0.4 (0.1-1.2) X10*3/uL Eos # (Auto) 0.2 (0.0-0.4) X10*3/uL Baso # (Auto) 0.0 (0.0-0.2) X10*3/uL Abs Immat Gran (auto) 0.01 (0.00-0.03) X10*3/uL Absolute Neuts (auto) 2.8 (2.0-8.3) x10*3/uL Absolute Nucleated RBC 0.000 (0.0-0.012) X10*3/uL Nucleated RBC % (auto) 0.0 (0.0-0.2) /100WBC Sodium 141 (135-145) mmol/L Potassium 3.5 (3.3-5.1) mmol/L Chloride 107 (96-108) mmol/L Carbon Dioxide 25 (22-29) mmol/L Anion Gap 13 (12-20) BUN 11 (9-16) mg/dL Creatinine 0.74 (0.5-1.4) mg/dL Estim Creat Clear Calc 95.4 Estimated GFR > 60 Random Glucose 91 (60-115) mg/dL Calcium 9.5 (8.4-10.2) mg/dL Magnesium 2.0 (1.6-2.6) mg/dL Total Bilirubin 2.6 H (0.0-1.0) mg/dL AST 31 (5-31) U/L ALT 22 (0-31) U/L Alkaline Phosphatase 55 (39-117) U/L Total Protein 7.6 (6.5-8.0) g/dL Albumin 4.4 (3.5-5.0) g/dL Beta HCG, Quant < 2 mIU/mL Urine Color Yellow Urine Appearance Clear Urine pH 5.5 (5.0-9.0) Ur Specific [place] 1.020 (1.005-1.025) Urine Protein Negative (Neg-Trace) mg/dL Urine Glucose (UA) Negative (Negative) mg/dL Urine Ketones Negative (Negative) mg/dL Urine Blood Negative (Negative) Urine Nitrite Negative (Negative) Ur Leukocyte Esterase Trace H (Negative) Urine RBC 0-2 (0-2) /HPF Urine WBC 0-5 (0-5) /HPF Ur Squamous Epith Cells 6-10 (0-2) /HPF Urine Bacteria None Seen (None Seen) Hyaline Casts 0-2 (0-2) /LPF Influenza Type A (PCR) NEGATIVE (Negative) Influenza Type B (PCR) NEGATIVE (Negative) RSV RNA Qual (PCR) NEGATIVE (Negative) SARS-CoV-2 RNA (RT-PCR) NEGATIVE (Negative) Independent Interpretation I performed an independent interpretation of an: CT Scan Interpretation: LUNG BASES: The visualized lung bases are unremarkable. LIVER, GALLBLADDER, AND BILIARY TREE: The liver is normal in size, shape, and attenuation. No focal hepatic lesion or biliary ductal dilatation is present. The gallbladder is unremarkable with no evidence of radiopaque gallstones, gallbladder wall thickening, or obvious pericholecystic inflammatory changes. PANCREAS: Unremarkable. SPLEEN: Unremarkable. ADRENAL GLANDS: Unremarkable. KIDNEYS AND URETERS: The kidneys are normal in size, shape, and attenuation. No hydronephrosis, hydroureter, or calculi seen. No perinephric stranding. BLADDER: Unremarkable. GASTROINTESTINAL TRACT: The small and large bowel are unremarkable. The appendix is unremarkable. ABDOMINAL WALL: No significant hernia is appreciated. LYMPH NODES: Normal. VASCULAR: Unremarkable. PELVIC VISCERA: Normal CT appearance of uterus. No adnexal masses. OSSEOUS STRUCTURES: Unremarkable. CT/CT abdomen pelvis wo IV con IMPRESSION: No acute abnormality within the abdomen or pelvis. Specifically, no evidence of nephrolithiasis or obstructive uropathy. Fleischner guidelines were followed. Radiology Impression Discussion of test interpretation with radiology: I have reviewed the radiologist's reading. Discharge Plan Discharge Clinical Impression: Musculoskeletal back pain Patient Disposition: Home, Self-Care Instructions: Back Pain (ED) Additional Instructions: Please follow-up with your primary care physician tomorrow. If you have any worsening or new symptoms, please return to the emergency room or call 911 Prescriptions: New cyclobenzaprine 10 mg tablet 10 mg PO TID PRN (Reason: muscle spasm) Qty: 10 0RF tramadol 50 mg tablet 50 mg PO BID PRN (Reason: pain) Qty: 6 0RF Stand Alone Forms: Work/School Release Print Language: [place]
[2024-09-04 14:17] LABS: Basophils Percent Auto 0.6 % (0-2); Eosinophils Absolute Auto 0.2 X10*3/uL (0.0-0.4); Hematocrit 39.7 % (37.0-47.0); Hemoglobin 14.2 g/dl (12.0-16.0); Imm Gran Abs Auto 0.01 X10*3/uL (0.00-0.03); Imm Gran Pct Auto 0.2 % (0.0-0.4); Lymphocytes Absolute Auto 1.9 X10*3/uL (1.2-4.9); Lymphocytes Percent Auto 36.3 % (20-40); MANUAL DIFF FLAG NO; Mean Corpuscular HGB Conc 35.8 g/dl (31.0-35.0); Mean Corpuscular Hemoglobin 31.8 pg (27.0-33.0); Mean Corpuscular Volume 88.8 fL (80.0-98.0); Mean Platelet Volume 9.3 fL (9.4-12.3); Monocytes Absolute Auto 0.4 X10*3/uL (0.1-1.2); Monocytes Percent Auto 7.9 % (2-11); Neutrophils Absolute Auto 2.8 x10*3/uL (2.0-8.3); Platelet Count 220 X10*3/uL (160-400); Red Blood Count 4.47 X10*6/uL (4.20-5.50); Red Cell Distribution Width 11.9 % (11.0-16.0); White Blood Count 5.3 X10*3/uL (4.8-10.8)
[2024-09-04 14:42] LABS: Alanine Aminotransferase 22 U/L (0-31); Albumin Level 4.4 g/dL (3.5-5.0); Alkaline Phosphatase 55 U/L (39-117); Anion Gap 13 (12-20); Aspartate Amino Transferase 31 U/L (5-31); Bilirubin Total 2.6 mg/dL (0.0-1.0); Blood Urea Nitrogen 11 mg/dL (9-16); Calcium 9.5 mg/dL (8.4-10.2); Carbon Dioxide 25 mmol/L (22-29); Chloride 107 mmol/L (96-108); Creatinine Clr Calc Pharmacy 95.4; Estimated Glomerular Filt Rate > 60; Glucose Random 91 mg/dL (60-115); HCG Quantitative < 2 mIU/mL; Potassium 3.5 mmol/L (3.3-5.1); Sodium 141 mmol/L (135-145); Total Protein 7.6 g/dL (6.5-8.0)
[2024-09-04 15:18] LABS: Influenza A PCR NEGATIVE (Negative); Influenza B PCR NEGATIVE (Negative); Resp Syncy Virus RNA Qual PCR NEGATIVE (Negative); SARS COV2 PCR INHOUSE NEGATIVE (Negative)
[2024-09-04] MEDS: Acetaminophen 325 MG TABLET 975 MG PO (16:30)
[2024-09-04 18:04] LABS: Appearance Urine Clear; Color Urine Yellow; Glucose Urine UA Negative (Negative); Leukocyte Esterase Urine Trace (Negative); Nitrite Urine Negative (Negative); PH 5.5 (5.0-9.0); UMIC TRIGGER UACC YES; Urine Blood Negative (Negative); Urine Ketones Negative (Negative); Urine Protein Negative (Neg-Trace)
[2024-09-04 18:17] LABS: Bacteria Urine None Seen (None Seen); Hyaline Casts Urine 0-2 /LPF (0-2); RBC Urine 0-2 /HPF (0-2); WBC Urine 0-5 /HPF (0-5)
[2024-09-04 18:34] VITALS: BP 122/72; PULSE 75; RESP 17; TEMP 36.2; O2SAT 97
[2024-09-04] MEDS: Cyclobenzaprine HCl 10 MG TABLET PO (18:41)
[2024-09-04 18:43] VITALS: RESP 16
[2024-09-04] MEDS: Morphine Sulfate 4 MG/ML CARTRIDGE 2 MG IM (18:43)
--- NOTE | 2024-09-04 19:06 | PC.NURSE ---
report received from Elida Alcala RN, assume care of pt at this time
[2024-09-04 19:29] VITALS: BP 122/72; PULSE 75; RESP 16; TEMP 36.2; O2SAT 97
== END 2024-09-04 19:30 | disposition home or self-care (01) ==
PROVIDERS: Physician Assistant Medical; Emergency Provider Emergency Medicine; PCP Internal Medicine
DX: M54.50 Low back pain, unspecified (principal); R10.2 Pelvic and perineal pain; Z79.899 Other long term (current) drug therapy; Z03.818 Encounter for observation for suspected exposure to other biological agents ruled out
CPT/HCPCS: 0241U; 74176; 80053; 81001; 83735; 84702; 85025; 96372; 99284; J2270

== ENCOUNTER 2024-11-01 11:52 | Outpatient (REF) | payer BC, SELFPAY ==
--- NOTE | ~2024-11-01 | US_ITS ---
EXAMINATION: US SCREENING ULTRASOUND BREAST, BILATERAL CLINICAL INFORMATION: Dense breasts on mammography. Screening ultrasound. COMPARISON: Prior imaging within our PACS system. TECHNIQUE: Ultrasound is performed using grayscale imaging and color Doppler. Imaging is performed to include the four quadrants and retroareolar region. Both breasts are imaged. FINDINGS: Right breast: Multiple simple cysts are seen, At 2:00 a simple cyst measuring up to 24 mm at 12:00 multiple adjacent simple cysts the largest measuring up to 24 mm. A 5:00 simple cyst measuring up to 19 mm. There is a subcentimeter retroareolar simple cysts. A simple cyst at 9:00 in adjacent minimally complicated to simple cysts the largest measures up to 23 mm. Targeted ultrasound of the axilla demonstrates normal axillary tissue. There is no suspicious finding by ultrasound. There is no solid mass or focal architectural abnormality. Left breast: There is a simple cyst at 1:00 measuring up to 8 mm. There is a simple cyst at 2:00 measuring 26 mm and several adjacent simple cysts. There is a simple cyst at 4:00 measuring up to 15 mm. there is a simple cyst in the retroareolar region measuring up to 9 mm. There is a simple cyst at 10:00 measuring up to 15 mm. There is no suspicious finding by ultrasound. There is no solid mass or focal architectural abnormality. Targeted ultrasound of the axilla demonstrates normal axillary tissue. US/US breast BI complete IMPRESSION: Multiple bilateral simple cysts. Benign. No sonographic suspicious findings or other abnormalities. ASSESSMENT: BI-RADS 2 - Benign Findings RECOMMENDATION: 1 year F/U This patient's information was entered into a reminder system with a target due date for their next mammogram. Electronically signed by: Berenice Avina DO 11/01/2024 12:32 PM [facility]
== END 2024-11-01 11:53 | disposition home or self-care (01) ==
LOC: HO.MAMMO 11:52
PROVIDERS: PCP Internal Medicine; Visit Provider Internal Medicine
DX: R92.30 Dense breasts, unspecified (principal); N60.02 Solitary cyst of left breast; N60.01 Solitary cyst of right breast
CPT/HCPCS: 76641

== ENCOUNTER → 2024-11-01 12:00 | Outpatient (BNV) | payer BC, SELFPAY | PROVIDERS: PCP Internal Medicine; Visit Provider Internal Medicine | DX: N60.01 Solitary cyst of right breast (principal); N60.02 Solitary cyst of left breast | CPT/HCPCS: 76641 ==

== ENCOUNTER 2024-11-29 16:20 | Outpatient (RCR) | payer BC, SELFPAY ==
--- NOTE | 2024-10-31 18:23 | MHC.PT.EP ---
[facility] [place] Office [place] Office [place] Office [address] Jie Gerardo [address] [phone] F: [phone] F: [phone] F: [phone] F: [phone] Physical Therapy Plan of Care Date of Evaluation: 10/31/24 Date of Surgery: n/a Diagnosis: Low back pain, unspecified Assessment: Pt is a pleasant and motivated 43yo F who presents to PT with low back pain with intermittent radicular symptoms into RLE. She presents to PT with current impairments in pain, decreased muscle length, decreased core stabilization, decreased hip/glute strength, increased neural tension, and impaired body mechanics. She is limited functionally by bending, prolonged walking, and stairs. She is a good candidate for skilled PT in order to address current impairments to facilitate return to PLOF. She is recommended to be seen 2x/week for 4 weeks and will be reassessed at that time Frequency and Duration: The patient will be seen 2x/week for 4 weeks Short Term Goals: Pt will be I with HEP to promote self management of symptoms Pt will have centralization of symptoms Pt will demonstrate improvements in postural awareness throughout the day Mold Checker Goals: Pt will tolerate walking > 2 miles without pain or radicular symptoms Pt will demonstrate ability to squat and order picker/assembler object from the ground with proper mechanics and without pain Pt will return to gym routine with proper mechanics and without pain Treatment Plan: Modalities to reduce pain, spasms and effusion. Manual therapy to restore motion and function. Therapeutic exercise to improve strength and flexibility. Neuromuscular re-education for posture and balance. Therapeutic activities to return to functional activities of daily living. Electronically signed by: Cailin Tinajero, PT, DPT Please sign and return to therapist. Thank you for your referral.
--- NOTE | 2025-01-08 08:40 | MHC.PT.DC ---
[facility] [place] Office [place] Office [place] Office [address] Jie Gerardo [address] [phone] F: [phone] F: [phone] F: [phone] F: [phone] Physical Therapy Discharge Report Diagnosis: Low back pain, unspecified Date of Surgery: n/a Date of Evaluation: 10/31/24 Date of Discharge: 01/08/25 Treatments to Date: 4 Cancellations to Date: 3 No Shows to Date: Discharge Status: Discharge Summary: Pt was seen for skilled PT from 10/31/24-11/29/24. Her last attended appointment was 11/29/24. She cancelled her last 2 scheduled appointments. She is being D/C from skilled PT as she has not attended in > 30 days. Pt current level of function unknown at this time Electronically signed by: Cailin Tinajero, PT, DPT Please sign and return to therapist. Thank you for your referral.
== END 2025-01-08 08:40 | disposition home or self-care (01) ==
LOC: HO.PT 16:20
PROVIDERS: PCP Internal Medicine; Visit Provider Internal Medicine
DX: M54.50 Low back pain, unspecified (principal)
CPT/HCPCS: 97012; 97110; 97161; 97530

== ENCOUNTER 2025-05-07 08:23 | Outpatient (AMB) | payer BC, SELFPAY ==
--- NOTE | 2025-05-07 08:24 | MHC.PC.OV ---
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 Lumbar disc herniation-currently stable. Reports MRI lumbar spine at [facility] showing degenerative disc disease at L4-5 with large central disc protrusion causing moderate central canal stenosis encroaching upon descending right and left L5 nerve root. Reports when symptoms flare, there is severe low back pain radiating causing weakness in the RLE limiting ambulation Eczema- under right ear lobe. No new contacts. Has removed earrings without relief. Had been seen previously by Dr. Collier but has not returned Concerns: As above Verruca vulgaris- right 2nd finger. Has tried [id number] remedies without success Perimenopausal symptoms-last menstrual period 7 months ago. Reports significant flushing and hot flashes as well as anxiety. Health maintenance: Last screening mammogram 07/2024 showing extremely dense breast tissue with bilateral circumscribed oval masses consistent with benign fibrocystic changes since this. Negative for malignancy. Sent for follow-up ultrasound which revealed benign simple cysts Due for screening colonoscopy Overdue for Pap smear ROS: General: No fevers, malaise, unintentional weight loss HEENT: No blurred vision, diplopia. No sore throat, nasal congestion, rhinorrhea, sinus pain, ear pain Cardiovascular: No chest pain, palpitations, or leg edema Respiratory: No shortness of breath, wheezing, cough GI: No abdominal pain, nausea, vomiting, diarrhea, constipation, melena, hematochezia : No dysuria, hematuria, increased urinary frequency, decreased urinary output MSK: See HPI Neuro: No headaches, weakness, paresthesias Skin: See HPI EXAM: Constitutional - Awake and Alert, No apparent distress Eyes - PERRL Cardiovascular - S1S2, RRR, No edema Respiratory - Normal lung expansion, Normal respiratory effort, No respiratory distress, CTA bilaterally Extremities - no calf tenderness bilaterally, no swelling Skin - Warm/Dry. 2mm lesion right 2nd finger consistent with verruca vulgaris. Dry patch faintly erythematous just inferior to the right earlobe Neurological - Alert & oriented x3. Psychological - Appropriate affect [facility] Medical History (Updated 05/07/25 @ 09:12 by JEREMIAH Stephenson) Eczema Protruded lumbar disc Lumbar degenerative disc disease Social History Alcohol intake: current Alcohol intake frequency: a few times a week Patient Tobacco Use Status: Former Tobacco user Tobacco use type: Cigarette e-Cigarette/Vaping Use: Never Used Questionnaire PHQ-9 Over the last 2 weeks, how often have you been bothered by any of the following problems? 1. Little interest or pleasure in doing things: not at all 2. Feeling down, depressed, or hopeless: several days 3. Trouble falling or staying asleep, or sleeping too much: several days 4. Feeling tired or having little energy: several days 5. Poor appetite or overeating: not at all 6. Feeling bad about yourself - or that you are a failure or have let yourself or your family down: not at all 7. Trouble concentrating on things, such as reading the newspaper or watching television: not at all 8. Moving or speaking so slowly that other people could have noticed. Or the opposite - being so fidgety or restless that you have been moving around a lot more than usual: not at all 9. Thoughts that you would be better off or of hurting yourself in some way: not at all Total score: 3 Source: Developed by Drs. Fracisco Dallas, Ricarda Julien, Jordi Dudley and colleagues, with an educational tomas from [employer]. Thrive Questionnaire Date Thrive assessed: 05/07/25 I am a: Patient What is your living situation today?: I have a steady place to live Within the past 12 months, did the food you bought not last and you didn't have the money to get more?: Sometimes True Within the past 12 months, did you worry whether your food would run out before you got money to buy more?: Sometimes True Do you have trouble paying for medicines?: No Do you have trouble getting transportation to medical appointments?: No Do you have trouble paying your heating and electricity bill?: No Do you have trouble taking care of your child, family member or friend?: No Do you have trouble with day-to-day activities such as bathing, preparing meals, shopping, managing finances, etc.?: No Are you currently unemployed and looking for a job?: No Are you interested in more education?: No THRIVE Score: 2 AUDIT C Alcohol Use Questionnaire (AUDIT-C) 1. How often do you have a drink containing alcohol?: Monthly or less 2. How many drinks containing alcohol do you have on a typical day when you are drinking?: 1 or 2 Total Score: 1 RON-7 AMB Questionnaire RON-7 Date RON - 7 assessed: 05/07/25 Feeling nervous, anxious, or on edge: 0 = Not at all Not being able to stop or control worryin = Not at all Worrying too much about different things: 2 = More than half the days Trouble relaxin = Several days Being so restless that it is hard to sit still: 0 = Not at all Becoming easily annoyed or irritable: 1 = Several days Feeling afraid as if something awful might happen: 0 = Not at all Total RON-7 score (0-4 normal; 5-9 mild; 10-14 moderate; 15-21 severe): 4 Source: Developed by Drs. Fracisco Dallas, Ricarda Julien, Jordi Dudley and colleagues, with an educational tomas from [employer]. Physical exam (Primary Care) Vital Signs: Last Vital Signs Temp 97.6 F 05/07/25 08:29 Pulse 50 05/07/25 08:29 Resp 14 05/07/25 08:29 BP 120/80 05/07/25 08:29 Pulse Ox 99 05/07/25 08:29 Oxygen Delivery Method Room Air 05/07/25 08:29 BMI result Body Mass Index 26.1 Tobacco/Smoking Status: Tobacco use Status Tobacco use date assessed 05/07/25 05/07/25 08:31 Patient Tobacco Use Status Former Tobacco user 05/07/25 08:31 Tobacco use type Cigarette 05/07/25 08:31 e-Cigarette/Vaping Use Never Used 05/07/25 08:31 Coding Level of Care Code New Pt Level 4 (21066) Complex EM visit Add On G2211 Diagnoses Lumbar degenerative disc disease M51.369 Protruded lumbar disc M51.26 Wart of hand B07.9 Eczema L30.9 Assessment & Plan Assessment & Plan (1) Lumbar degenerative disc disease: Code(s): M51.369 - Other intervertebral disc degeneration, lumbar region without mention of lumbar back pain or lower extremity pain Category: Medical Plan: Currently stable. Has establish with Neurosurgery in the past but is not interested at this time, we will consider if she does experience another flare-up. She does have tramadol and cyclobenzaprine from prior injury to use if needed. We will continue monitoring (2) Protruded lumbar disc: Code(s): M51.26 - Other intervertebral disc displacement, lumbar region Category: Medical Plan: See above (3) Wart of hand: Code(s): B07.9 - Viral wart, unspecified Category: Medical Plan: Referred to dermatology (4) Eczema: Code(s): L30.9 - Dermatitis, unspecified Category: Medical Plan: Triamcinolone cream Plan Follow-up in the office in 5-6 months for annual physical exam. Labs are up-to-date and reviewed. She is referred to Dermatology, OBGYN she is overdue and to Gastroenterology for screening colonoscopy Orders: Referrals Dermatology Referral B07.9 - Viral wart, unspecified MAILING MACHINE ASSISTANT Referral Z12.4 - Encounter for screening for malignant neoplasm of cervix Gastroenterology Referral Z12.11 - Encounter for screening for malignant neoplasm of colon Medications: New triamcinolone acetonide 0.1% 1 appl topical BID 30 grams 1RF Patient Instructions: Try black cohosh for perimenopause symptoms
[2025-05-07 08:29] VITALS: BP 120/80; PULSE 50; RESP 14; TEMP 36.4; O2SAT 99; BMI 26.1
== END 2025-05-07 09:01 | disposition home or self-care (01) ==
PROVIDERS: PCP Physician Assistant; Visit Provider Physician Assistant
DX: M51.369 Other intervertebral disc degeneration, lumbar region without mention of lumbar back pain or lower extremity pain (principal); M51.26 Other intervertebral disc displacement, lumbar region; B07.9 Viral wart, unspecified; L30.9 Dermatitis, unspecified

== ENCOUNTER 2025-08-28 07:18 | Outpatient (REF) | payer BC, SELFPAY ==
--- NOTE | ~2025-08-28 | MM_ITS ---
EXAMINATION: MM SCREENING DIGITAL BREAST TOMOSYNTHESIS, BILATERAL CLINICAL INFORMATION: Screening. Asymptomatic. COMPARISON: Comparison made to multiple prior, most recent August 16, 2024, and most remote February 25, 2018. TECHNIQUE: Digital breast tomosynthesis is performed in mediolateral oblique and craniocaudal views along with computer-aided detection (CAD). Synthesized 2D images are generated from the tomosynthesis. FINDINGS: BREAST COMPOSITION: The breasts are heterogeneously dense, which may obscure small masses. BILATERAL BREASTS: Interval change in size and number of bilateral rounded/oval masses, typical of wax and wane of the fibrocystic changes in this patient with sonographically proven multiple cysts. No significant masses, suspicious calcifications or other abnormalities are seen in either breast. MM/MM tomosynthesis screening BI IMPRESSION: BILATERAL BREASTS: Benign, no mammographic evidence of malignancy. Normal interval follow-up is recommended in 12 months. ASSESSMENT: BI-RADS: Category 2: Benign RECOMMENDATION: Routine annual mammography screening. FOLLOW-UP: 1 year F/U This examination should not preclude the clinical evaluation of a suspicious palpable abnormality. This patient's information was entered into a reminder system with a target due date for their next mammogram. Electronically signed by: Dong Vivar MD 08/29/2025 06:49 PM [facility]
== END 2025-08-28 07:19 | disposition home or self-care (01) ==
LOC: HO.MAMMO 07:18
PROVIDERS: PCP Internal Medicine; Visit Provider Internal Medicine
DX: Z12.31 Encounter for screening mammogram for malignant neoplasm of breast (principal)
CPT/HCPCS: 77063; 77067

== ENCOUNTER → 2025-08-28 07:30 | Outpatient (BNV) | payer BC, SELFPAY | PROVIDERS: PCP Internal Medicine; Visit Provider Radiology Body Imaging | DX: Z12.31 Encounter for screening mammogram for malignant neoplasm of breast (principal) | CPT/HCPCS: 77063; 77067 ==

== ENCOUNTER 2025-10-10 13:19 | Outpatient (REF) | payer BC, SELFPAY ==
[2025-10-11 01:46] LABS: Bacterial Vaginosis PCR POSITIVE (Negative); Candida Group PCR NOT DETECTED (Not Detect); Candida glab krusei PCR NOT DETECTED (Not Detect); Trichomonas vaginalis PCR NOT DETECTED (Not Detect)
[2025-10-11 02:17] LABS: CT PCR NOT DETECTED (Not Detect.); NG PCR NOT DETECTED (Not Detect.)
== END 2025-10-10 13:20 | disposition home or self-care (01) ==
LOC: HO.LNP 13:19
PROVIDERS: PCP Internal Medicine; Visit Provider Advanced Practice Midwife
DX: Z01.419 Encounter for gynecological examination (general) (routine) without abnormal findings (principal); N95.1 Menopausal and female climacteric states; Z20.2 Contact with and (suspected) exposure to infections with a predominantly sexual mode of transmission
CPT/HCPCS: 81515; 87491; 87591; 87626; 88175

== ENCOUNTER 2025-10-10 13:19 | Outpatient (AMB) | payer BC, SELFPAY ==
[2025-10-10 13:31] VITALS: BP 118/78; BMI 29.0
--- NOTE | 2025-10-10 13:31 | A.OFFVIS_ITS ---
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 does want vaginal swabs Customer Counter Associate Required: No Information Interpreted: non-clinical & clinical Vegetable Thinner: Vegetable Thinner Present (Cynthia) Accompanied by: Self / Same As Patient Allergies No Known Allergies (No Known Allergies*) Allergy (Verified 10/10/25 13:33) Medication List - Last Reconciled 10/10/25 by Radha Jackson LPN cholecalciferol (vitamin D3) 25 mcg PO DAILY cyclobenzaprine 10 mg PO TID PRN tramadol 50 mg PO BID PRN triamcinolone acetonide 0.1% 1 appl topical BID Is last menstrual period known: Yes Last menstrual period: 10/07/25 (spotting) Referred by: PCP Do you need a note to return to daycare/school/sports/work: No HPI Comments Details: Patient is a premenopausal woman presenting for new patient annual examination. Assurance Sourcing Manager concerns: Skipping menses 5-6months, light. Having hot flashes, LMP around 12/2024. Currently is sexually active, had vasectomy many years ago. She denies vaginal itching or irritation. STI screening offered; she accepts w/blood work. She tries to eat healthy and stays active with exercise. Last pap smear 2009, negative. Mammogram: 2024. [facility] Medical History Eczema Protruded lumbar disc Lumbar degenerative disc disease Family History Mother Diabetes Sister Diabetes Social History Household Members: Spouse and Children Housing: House Alcohol intake: current Alcohol intake frequency: a few times a week e-Cigarette/Vaping Use: Never Used Current occupational status: employed Current occupation: [employer] Female Reproductive History Menstrual Age of Menarche: 11 Date of last menstrual period: 10/07/25 (spotting) control method: other ( has a vasectomy) Total pregnancies: 2 Full term: 2 Number of Living Children: 2 Date of last pap smear: 10/10/10 History of abnormal pap smear: No Date of Mammogram: 08/28/25 ([facility] 2 benign) Review of Systems Const All systems reviewed & are unremarkable except as noted in HPI and below Reports as per HPI Eyes Reports no additional complaints ENT Reports no additional complaints Card Reports no additional complaints Resp Reports no additional complaints GI Reports as per HPI and Reports no additional complaints Reports as per HPI Musc Reports no additional complaints Skin/Breast Reports as per HPI Neuro Reports no additional complaints Psych Reports no additional complaints Endo Reports no additional complaints Hugo/Lymph Reports no additional complaints Aller/Immun Reports no additional complaints Physical Exam Vital Signs: Last Vital Signs BP 118/78 10/10/25 13:31 BMI result Body Mass Index 29.0 Const General: cooperative, healthy appearing, no acute distress, well developed and alert Orientation/consciousness: patient oriented x3 HEENT Head: Yes normal to inspection Eyes General: appearance normal, both eyes and all related structures Neck Neck: Yes normal visual inspection Thyroid: Thyroid normal Chest Chest palpation & inspection: normal inspection of the chest and other (no puckering, dimpling, peau de orange, retraction, discharge, masses) Breast/axilla inspection: normal inspection of the breasts Breast/axilla palpation: normal palpation of the breasts Resp Effort & Inspection: normal respiratory effort GI Inspection: Yes normal to inspection Palpation (GI): Soft to palpation Rectal Exam - Female: deferred General: Yes bladder normal to palpation External Female Exam: normal external appearance and normal appearance of the urethra Speculum Exam - Vagina: normal appearance of the vagina, normal palpation, normal vaginal discharge and vaginal bleeding Speculum Exam - Cervix: normal appearance of the cervix and normal palpation Bimanual exam- vagina & uterus: normal bimanual exam, normal palpation, uterine size normal, bladder normal to palpation, normal palpation and non-tender Bimanual Exam- Adnexa, other: no masses OB/external & speculum: vaginal bleeding Skin General skin exam: no rashes or lesions noted Rashes: no rashes Neuro General: patient oriented x3 Cognition (Neuro): normal cognition Extrem General: Yes normal to inspection Psych Attitude: cooperative Thought process: Normal thought process present Assessment & Plan Assessment & Plan (1) Encounter for well woman exam with routine gynecological exam: Code(s): Z01.419 - Encounter for gynecological examination (general) (routine) without abnormal findings Category: Medical Plan: Discussed: Current recommendations for pap smears per ASCCP guidelines. Pap obtained today. GC chlamydia and BV panel obtained, blood work ordered patient to obtain labs today. Follow up pending results. Breast awareness and periodic breast exams. Mammogram yearly. Maintain a healthy lifestyle including a well balanced diet and routine exercise. Patient verbalizes understanding and agrees to the plan of care. She was given opportunity to ask questions and all questions were answered to the best of my ability. 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 This note is constructed using voice recognition software. While every effort has been made to ensure accuracy, stem dryer maintainer errors may have been included. (2) Perimenopause: Code(s): N95.1 - Menopausal and female climacteric states Category: Medical Plan Menopause verses perimenopause. Menopause is definitive of 1 year of no menses or 12 months in succession. Report any abnormal uterine bleeding- prolonged episodes, or short intervals less than 24 days. Menopause information provided with handouts on diet, exercise, and Internet website references for her review. The patient expressed understanding and agreement with the plan of care. All of her questions and concerns were addressed to the best of my ability. This note is constructed using voice recognition software. While every effort has been made to ensure accuracy, stem dryer maintainer errors may have been included. Orders: Orders HIV Ab/Ag Today Z20.2 - Contact with and (suspected) exposure to infections with a predominantly sexual mode of transmission Hepatitis C Antibody Reflex Today Z20.2 - Contact with and (suspected) exposure to infections with a predominantly sexual mode of transmission Hepatitis B Core Antibody Today Z20.2 - Contact with and (suspected) exposure to infections with a predominantly sexual mode of transmission Syphilis Screen Today Z20.2 - Contact with and (suspected) exposure to i nfections with a predominantly sexual mode of transmission Coding Level of Care Code New Pt Prev Care 40-64y([id number]) Diagnoses Encounter for well woman exam with routine gynecological exam Z01.419 Perimenopause N95.1
== END 2025-10-10 14:13 | disposition home or self-care (01) ==
LOC: HO.HWS 13:19
PROVIDERS: PCP Internal Medicine; Visit Provider Advanced Practice Midwife
DX: Z01.419 Encounter for gynecological examination (general) (routine) without abnormal findings (principal); N95.1 Menopausal and female climacteric states
CPT/HCPCS: 99386; 99459